=== PATIENT | female | born 1990 | race Caucasian/White ===

== ENCOUNTER → 2020-04-21 | Outpatient (CLI) | payer OTHER ==
[2016-10-16 10:45] VITALS: BP 101/63
[~2020-04-21] MED LIST: CYCL-331 PO; HYDR-3165 PO
--- NOTE | 2020-04-21 16:16 | RAD ---
US PELVIS W/TV History: Dysmenorrhea Comparison: None. Findings: Multiple transabdominal sonographic images of pelvis are submitted. Pelvic structures are poorly seen. Transvaginal ultrasound: Multiple transvaginal sonographic images of pelvis are submitted. Retroverted uterus measures about 7.8 x 6.1 x 4.6 cm. Endometrium is thin at 0.3 cm. Right ovary measured 3.1 x 1.9 x 1.5 cm. Left ovary measured 3.4 x 2.1 x 1.8 cm. There is normal low resistance vascularity of the ovaries bilaterally. There is anechoic lesion of the left ovary up to 2.5 x 1.9 x 1.4 cm. There is minimal free fluid in the pelvis. Impression: 1. There is a simple cyst of the left ovary, minimal free fluid. Electronically signed by: Joon Green MD (04/21/2020 4:13 PM) [id number]
== END | disposition home or self-care (01) ==
LOC: US 10:40
PROVIDERS: ATTEND Obstetrics & Gynecology
DX: N83.292 Other ovarian cyst, left side (principal); N93.9 Abnormal uterine and vaginal bleeding, unspecified; N92.0 Excessive and frequent menstruation with regular cycle; N94.6 Dysmenorrhea, unspecified
CPT/HCPCS: 76830; 76856

== ENCOUNTER → 2020-05-13 | Outpatient (CLI) | payer OTHER ==
[2016-10-16 10:45] VITALS: BP 101/63
--- NOTE | 2020-05-13 15:20 | RAD ---
Pelvic ultrasound complete: Reason for examination: Left lower quadrant pain. History of left ovarian cyst. Comparison is made to previous study dated 04/21/2020. Uterus measures 8.2 x 6.4 x 5.0 cm in greatest dimension. Endometrium is not thickened at 7.4 mm. Left ovary measures 3.7 x 2.3 x 3.1 cm in greatest dimension and shows good vascular flow. There is a small follicle centrally. The largest cyst seen previously has resolved. The right ovary measures 1.8 x 2.5 x 3.0 cm in greatest dimension and shows good vascular flow. There does appear to be a small amount of fluid in pelvic cul-de-sac. IMPRESSION: Resolution of the large cyst seen previously in the left ovary with only a small follicle nodule seen centrally. Small amount free fluid in the pelvis. Electronically signed by: Mary Jo Parekh MD (05/13/2020 3:18 PM) MARI
== END | disposition home or self-care (01) ==
LOC: US 10:09
PROVIDERS: ATTEND Obstetrics & Gynecology
DX: N83.292 Other ovarian cyst, left side (principal)
CPT/HCPCS: 76856

== ENCOUNTER 2021-03-07 16:18 | Emergency (ER) | payer OTHER ==
[~2021-03-07] VITALS: Ht 157.5 cm; Wt 41.4 kg
[2021-03-07] MEDS ORDERED: ONDANSETRON PF 4 MG/2 ML VIAL. IVP ONE (17:00)
[2021-03-07] MEDS ORDERED: ONDANSETRON ODT 4 MG TAB.RAPDIS PO ONE (17:00)
--- NOTE | 2021-03-07 17:13 | PHYS DOC ---
Past History Past Medical History: No Pertinent History Past Surgical History: Appendectomy, Tubal ligation, Other Additional Past Surgical Histo: vaginal x4 Smoking: Cigarettes, Less than 1pk/day Alcohol Use: Rarely Drug Use: None General Adult EDM: Chief Complaint: NAUSEA/VOMITING/DIARRHEA HPI: HPI: Patient is a 30-year-old female who presents with nausea/vomiting/diarrhea since this morning. Patient states "my fianc also has the same symptoms, we thought maybe we had food poisoning". "Everything keeps coming back up". Patient denies fevers. Denies abdominal pain. Denies health history. Review of Systems: Review of Systems: Constitutional: Denies fever or chills Eyes: Denies change in visual acuity HENT: Denies nasal congestion or sore throat Respiratory: Denies cough or shortness of breath Cardiovascular: Denies chest pain or edema GI: Denies abdominal pain. Reports nausea vomiting, diarrhea : Denies dysuria Musculoskeletal: Denies back pain or joint pain Integument: Denies rash Neurologic: Denies headache, focal weakness or sensory changes Endocrine: Denies polyuria or polydipsia Lymphatic: Denies swollen glands Psychiatric: Denies depression or anxiety Current Medications: Current Meds: Current Medications Medications (Trade) Dose Ordered Sig/Ana Start Time Stop Time Status Last Admin Dose Admin Ondansetron HCl (Zofran Odt) 4 mg 1X ONCE 03/07/21 17:00 03/07/21 17:01 DC 03/07/21 17:07 4 MG Ondansetron HCl (Zofran) 4 mg 1X ONCE 03/07/21 17:00 03/07/21 16:57 DC Allergies: Allergies: Allergies Coded Allergies Type Severity Reaction Last Updated Verified latex Allergy Unknown 03/07/21 Yes Physical Exam: PE: Constitutional: Well developed, well nourished, no acute distress, non-toxic appearance. [] HENT: Normocephalic, atraumatic, bilateral external ears normal, oropharynx moist, no oral exudates, nose normal. [] Eyes: PERRLA, EOMI, conjunctiva normal, no discharge. [] Neck: Normal range of motion, no tenderness, supple, no stridor. [] Cardiovascular: Sinus tachycardia Lungs & Thorax: Bilateral breath sounds clear to auscultation [] Abdomen: Bowel sounds normal, soft, no tenderness, no masses, no pulsatile masses. [] Skin: Warm, dry, no erythema, no rash. [] Back: No tenderness, no CVA tenderness. [] Extremities: No tenderness, no cyanosis, no clubbing, ROM intact, no edema. [] Neurologic: Alert and oriented X 3, normal motor function, normal sensory function, no focal deficits noted. [] Psychologic: Affect normal, judgement normal, mood normal. [] Current Patient Data: Vital Signs: Vital Signs Date Time Temp Pulse Resp B/P (MAP) Pulse Ox O2 Delivery O2 Flow Rate FiO2 03/07/21 16:44 98.5 110 18 148/99 (115) 99 Room Air EKG: EKG: [] Radiology/Procedures: Radiology/Procedures: [] Heart Score: C/O Chest Pain: No Risk Factors: Risk Factors: DM, Current or recent (<one month) smoker, HTN, HLP, family history of CAD, obesity. Risk Scores: Score 0 - 3: 2.5% MACE over next 6 weeks - Discharge Home Score 4 - 6: 20.3% MACE over next 6 weeks - Admit for Clinical Observation Score 7 - 10: 72.7% MACE over next 6 weeks - Early Invasive Strategies Course & Med Decision Making: Course & Med Decision Making Pertinent Labs and Imaging studies reviewed. (See chart for details) [] 30-year-old female presents with nausea/vomiting/diarrhea since this morning. Patient states that her fianc also has the same symptoms as her. Patient's heart rate is 102-114, normal saline bolus given. Patient reports that she is unable to keep any fluids down since this morning. Patient given Zofran for nausea. Patient denies abdominal pain. No indication at this time for a CT of abdomen. Patient reports symptoms have improved. Heart rate in the 90s. Patient sent home with prescription for Zofran and requesting a work note. Patient is appreciative and okay with discharge plan Dona Disclaimer: Dona Disclaimer: This electronic medical record was generated, in whole or in part, using a voice recognition dictation system. Departure Departure: Impression: Primary Impression: Nausea & vomiting Qualified Codes: R11.2 - Nausea with vomiting, unspecified Disposition: HOME / SELF CARE / HOMELESS Condition: STABLE Referrals: PCP,NO (PCP) Patient Instructions: Nausea and Vomiting, [id number] Additional Instructions: You were seen in the emergency room for nausea and vomiting. Your symptoms improved after medication. Sending you home with Zofran for nausea and vomiting. Please follow-up with your PCP if symptoms do not improve. Please return emergency room if you have worsening symptoms or concerns EMERGENCY DEPARTMENT GENERAL DISCHARGE INSTRUCTIONS Thank you for coming to [facility] (ED) today and trusting us with you care. We trust that you had a positivie experience in our Emergency Department. If you wish to speak to the department management, you may call the director at [phone]. YOUR FOLLOW UP INSTRUCTIONS ARE FOLLOWS: 1. Do you have a private Doctor? If you do not have a private doctor, please ask for a resource list of physicians or clinics that may be able to assist you with follow up care. 2. The Emergency Physician has interpreted your x-rays. The X-Ray specialist will also review them. If there is a change in the findings, you will be notified in 48 hours when at all possible. 3. A lab test or culture has been done, your results will be reviewed and you will be notified if you need a change in treatment. ADDITIONAL INSTRUCTIONS AND INFORMATION: 1. Your care today has been supervised by a physician who is specially trained in emergency care. Many problems require more than one evaluation for a complete diagnosis and treatment. We recommend that you schedule your follow up appointment as recommended to ensure complete treatment of you illness or injury. If you are unable to obtain follow up care and continue to have a problem, or if your condition worsens, we recommend that you return to the ED. 2. We are not able to safely determine your condition over the phone nor are we able to give sound medical advice over the phone. For these safety reasons, if you call for medical advice we will ask you to come to the ED for further evaluation. 3. If you have any questions regarding these discharge instructions please call the ED at [phone]. SAFETY INFORMATION: In the interest of safety, wellness, and injury prevention; we encourage you to wear your sealbelt, if you smoke; quite smoking, and we encourage family to use a protective helmet for bicycling and other sporting events that present an increased risk for head injury. IF YOUR SYMPTOMS WORSEN OR NEW SYMPTOMS DEVELOP, OR YOU HAVE CONCERNS ABOUT YOUR CONDITION; OR IF YOUR CONDITION WORSENS WHILE YOU ARE WAITING FOR YOUR FOLLOW UP APPOINTMENT; EITHER CONTACT YOUR PRIMARY CARE DOCTOR, THE PHYSICIAN WHOSE NAME AND NUMBER YOU WERE GIVEN, OR RETURN TO THE ED IMMEDIATELY. Scripts Ondansetron Hcl (ZOFRAN) 4 Mg Tablet 4 MG PO TID PRN PRN for NAUSEA, #9 TAB Prov: DEANNA SALDANA APRN 03/07/21 DEANNA SALDANA APRN Mar 07, 2021 17:13
[2021-03-07] MEDS ORDERED: IV NORMAL SALINE 1,000ML 1,000 ML IV ONE (17:15)
[2021-03-07 18:15] VITALS: BP 111/59
[2021-03-07] MEDS ORDERED: ONDA4TAB7 PO (18:38)
== END 2021-03-07 18:50 | disposition home or self-care (01) ==
LOC: ER 16:18
DX: R11.2 Nausea with vomiting, unspecified (principal); R19.7 Diarrhea, unspecified; F17.210 Nicotine dependence, cigarettes, uncomplicated; Z90.89 Acquired absence of other organs; Z98.51 Tubal ligation status; Z91.040 Latex allergy status
CPT/HCPCS: 99283; J7030; Q0162

== ENCOUNTER 2021-04-08 02:54 | Emergency (ER) | payer OTHER ==
[~2021-04-08] VITALS: Ht 157.5 cm; Wt 41.6 kg
[~2021-04-08 02:54] MED LIST changes: +ONDA4TAB7 PO
--- NOTE | 2021-04-08 03:24 | PHYS DOC ---
Past History Past Medical History: No Pertinent History Past Surgical History: Appendectomy, Hysterectomy, Tubal ligation Additional Past Surgical Histo: vaginal x4 Smoking: Cigarettes, Less than 1pk/day Alcohol Use: Rarely Drug Use: None General Adult EDM: Chief Complaint: ABDOMINAL PAIN HPI: HPI: 30-year-old female presents with lower abdominal pain. The patient had a hysterectomy a couple weeks ago. She is supposed to take it easy for at least 6 weeks. She has been following instructions. Tonight, the patient had intense lower abdominal cramping and she tried to go to bed. She was able to fall asleep but woke up an hour later and the pain has continued throughout the night. She decided she could not take anymore so she came to the emergency room. She denies fever or chills. She denies falls or trauma. She did not call her surgeon. Review of Systems: Review of Systems: Constitutional: Denies fever or chills Eyes: Denies change in visual acuity HENT: Denies nasal congestion or sore throat Respiratory: Denies cough or shortness of breath Cardiovascular: Denies chest pain or edema GI: Lower abdominal pain. Denies nausea, vomiting, bloody stools or diarrhea : Denies dysuria Musculoskeletal: Denies back pain or joint pain Integument: Denies rash Neurologic: Denies headache, focal weakness or sensory changes Endocrine: Denies polyuria or polydipsia Lymphatic: Denies swollen glands Psychiatric: Denies depression or anxiety Current Medications: Current Meds: Current Medications Medications (Trade) Dose Ordered Sig/Ana Start Time Stop Time Status Last Admin Dose Admin Iohexol (Omnipaque 300 Mg/ml) 75 ml 1X ONCE 04/08/21 03:30 04/08/21 03:31 UNV Morphine Sulfate (Morphine 2mg Syringe) 2 mg 1X ONCE 04/08/21 03:30 04/08/21 03:31 UNV Sodium Chloride 1,000 ml @ 1,000 mls/hr 1X ONCE 04/08/21 03:30 04/08/21 04:29 Allergies: Allergies: Allergies Coded Allergies Type Severity Reaction Last Updated Verified latex Allergy Unknown 03/07/21 Yes Physical Exam: PE: Constitutional: Well developed, well nourished, no acute distress, non-toxic appearance. [] HENT: Normocephalic, atraumatic, bilateral external ears normal, oropharynx moist, no oral exudates, nose normal. [] Eyes: PERRLA, EOMI, conjunctiva normal, no discharge. [] Neck: Normal range of motion, no tenderness, supple, no stridor. [] Cardiovascular: Heart rate regular rhythm, no murmur [] Lungs & Thorax: Bilateral breath sounds clear to auscultation [] Abdomen: Bowel sounds normal, soft, no tenderness, no masses, no pulsatile masses. [] Skin: Warm, dry, no erythema, no rash. [] Back: No tenderness, no CVA tenderness. [] Extremities: No tenderness, no cyanosis, no clubbing, ROM intact, no edema. [] Neurologic: Alert and oriented X 3, normal motor function, normal sensory function, no focal deficits noted. [] Psychologic: Affect dramatic, judgement normal, mood normal. [] Current Patient Data: Vital Signs: Vital Signs Date Time Temp Pulse Resp B/P (MAP) Pulse Ox O2 Delivery O2 Flow Rate FiO2 04/08/21 03:08 98.0 113 18 115/61 99 Room Air EKG: EKG: [] Radiology/Procedures: Radiology/Procedures: [] Heart Score: C/O Chest Pain: N/A Risk Factors: Risk Factors: DM, Current or recent (<one month) smoker, HTN, HLP, family history of CAD, obesity. Risk Scores: Score 0 - 3: 2.5% MACE over next 6 weeks - Discharge Home Score 4 - 6: 20.3% MACE over next 6 weeks - Admit for Clinical Observation Score 7 - 10: 72.7% MACE over next 6 weeks - Early Invasive Strategies Course & Med Decision Making: Course & Med Decision Making Pertinent Labs and Imaging studies reviewed. (See chart for details) The patient's labs are unremarkable. Her urine drug screen was positive for opiates and marijuana. I did give her 2 mg of morphine prior to her giving a urine sample. It is possible that the abdominal cramping as a result of side effects of the marijuana. CT scan is pending. Patient's urinalysis shows blood, leukocyte esterase, and white cells. We will go ahead and treat her with Rocephin. The patient CT scan suggest infectious ileitis. I will treat her with Augmentin for 7 days. She is stable for discharge at this time. [] Dona Disclaimer: Dona Disclaimer: This electronic medical record was generated, in whole or in part, using a voice recognition dictation system. Departure Departure: Impression: Primary Impression: Ileitis Additional Impression: UTI (urinary tract infection) Qualified Codes: N30.01 - Acute cystitis with hematuria Disposition: HOME / SELF CARE / HOMELESS Condition: STABLE Referrals: PCP,NO (PCP) Patient Instructions: Urinary Tract Infection, [id number] Scripts Amoxicillin/Potassium Clav (AUGMENTIN 875-125 TABLET) 1 Each Tablet 1 TAB PO BID for infection for 7 Days, #14 TAB 0 Refills Prov: CHAS JEFFREY DO 04/08/21 CHAS JEFFREY DO Apr 08, 2021 03:24
[2021-04-08] MEDS ORDERED: IV NORMAL SALINE 1,000ML 1,000 ML IV ONE (03:30)
[2021-04-08] MEDS ORDERED: CONTRAST GIVEN. MC PRN (03:30)
[2021-04-08 03:39] LABS: BASO # 0.1 x10^3/uL (0.0-0.2); BASO % 1 % (0-3); EOS # 0.2 x10^3/uL (0.0-0.7); EOS % 2 % (0-3); HEMATOCRIT 39.1 % (36.0-47.0); HEMOGLOBIN 13.1 g/dL (12.0-15.5); LYMPH # 2.3 x10^3/uL (1.0-4.8); LYMPH % 16 % (24-48); MEAN CORPUSCULAR HEMOGLOBIN 30 pg (25-35); MEAN CORPUSCULAR HGB CONC 34 g/dL (31-37); MEAN CORPUSCULAR VOLUME 89 fL (79-100); MONO # 0.7 x10^3/uL (0.0-1.1); MONO % 5 % (0-9); NEUT # 11.2 x10^3uL (1.8-7.7); NEUT % 77 % (31-73); PLATELET COUNT 250 x10^3/uL (140-400); RED BLOOD COUNT 4.38 x10^6/uL (3.50-5.40); RED CELL DISTRIBUTION WIDTH 13.2 % (11.5-14.5); WHITE BLOOD COUNT 14.5 x10^3/uL (4.0-11.0)
[2021-04-08 03:49] LABS: CALCIUM 8.7 mg/dL (8.5-10.1); CREATININE 0.7 mg/dL (0.6-1.0); GFR 99.6; POTASSIUM 3.6 mmol/L (3.5-5.1)
[2021-04-08 03:54] LABS: ALBUMIN 3.6 g/dL (3.4-5.0); ALBUMIN/GLOBULIN RATIO 1.1 (1.0-1.7); TOTAL BILIRUBIN 0.2 mg/dL (0.2-1.0)
[2021-04-08] MEDS ORDERED: MORPHINE SULFATE 2 MG/ML DISP.SYRIN. IV ONE (04:00)
[2021-04-08] MEDS ORDERED: IOHEXOL 300 MG/ML 75 ML VIAL. IV ONE (04:00)
[2021-04-08 04:09] LABS: BACTERIA,URINE FEW /HPF (0-FEW); BARBITURATES NEG (NEG); BENZODIAZEPINES NEG (NEG); BILIRUBIN,URINE NEG (NEG); CANNABINOIDS POS (NEG); CLARITY,URINE HAZY; COCAINE NEG (NEG); COLOR,URINE YELLOW; GLUCOSE,URINE NEG (NEG); METHADONE NEG (NEG); NITRITE,URINE NEG (NEG); OPIATES POS (NEG); PHENCYCLIDINE NEG (NEG); RBC,URINE OCC /HPF (0-2); SQUAMOUS EPITHELIAL CELL,UR MOD /LPF
[2021-04-08 04:16] LABS: AMPHETAMINE/METHAMPHETAMINE NEG (NEG)
[2021-04-08] MEDS ORDERED: cefTRIAXone SODIUM 1 GM VIAL ONE (04:23)
[2021-04-08] MEDS ORDERED: IV NORMAL SALINE 50ML 50 ML ONE (04:23)
--- NOTE | 2021-04-08 04:44 | RAD ---
EXAMINATION: CT abdomen and pelvis with IV contrast. INDICATION:30 years, Female, abdominal pain, recent hysterectomy. TECHNIQUE: Axial CT images of the abdomen and pelvis were obtained. Coronal and sagittal reformatted performed. COMPARISON: None. Exposure: One or more of the following individualized dose reduction techniques were utilized for thi s examination: 1. Automated exposure control 2. Adjustment of the mA and/or kV according to patient size 3. Use of iterative reconstruction technique. FINDINGS: LOWER CHEST: Unremarkable ABDOMEN/PELVIS: Normal size and morphology of the liver with homogeneous enhancement. Focal fat infiltration adjacent to the falciform ligament. No suspicious focal hepatic lesion. Contracted gallbladder which limits e valuation. No biliary ductal dilation. Unremarkable spleen and pancreas. No adrenal nodule. No hydron ephrosis or nephrolithiasis in either kidney. Subcentimeter hypodensity in the lower pole left kidney , too small to characterize, but statistically representing cyst. Normal caliber abdominal aorta. Mesenteric arteries and portal vein are patent. No pneumoperitoneum o r ascites. No lymphadenopathy in the abdomen or pelvis by size criteria. Diffuse urinary bladder wall thickening, may relate to distention. Hysterectomy changes. Mild wall thickening involving approximately 10 cm long of the ileal loop in the left hemipelvis with adjacent fat stranding. Trace amount of pelvic free fluid, likely reactive. No bowel dilatation. Radha endix is not seen with certainty. MUSCULOSKELETAL: No acute osseous process. IMPRESSION: 1. Wall thickening involving approximately 10 cm long of the ileal loop in the left hemipelvis with t race amount of perienteric fat stranding, findings suggesting of acute infectious/inflammatory ileiti s. Clinical correlation is advised. 2. Diffuse urinary bladder wall thickening, may relate to underdistention. Consider correlation with urinalysis. Electronically signed by: aYsh Ramesh MD (04/08/2021 4:42 AM) [facility]
[2021-04-08] MEDS ORDERED: AMOX1TAB61 PO (04:50)
[2021-04-08 05:00] VITALS: BP 103/55
== END 2021-04-08 05:11 | disposition home or self-care (01) ==
LOC: ER 02:54
DX: K52.9 Noninfective gastroenteritis and colitis, unspecified (principal); N39.0 Urinary tract infection, site not specified; F17.210 Nicotine dependence, cigarettes, uncomplicated; Z91.040 Latex allergy status; Z90.710 Acquired absence of both cervix and uterus; Z98.51 Tubal ligation status
CPT/HCPCS: 36415; 74177; 80053; 80307; 81001; 83605; 85025; 87086; 96361; 96365; 96375; 99285; J0696; J2270; J7030; Q9967

== ENCOUNTER 2021-08-16 11:17 | Emergency (ER) | payer OTHER ==
[~2021-08-16] VITALS: Ht 157.5 cm; Wt 41.6 kg
[~2021-08-16 11:17] MED LIST changes: +AMOX1TAB61 PO; -CYCL-331 PO; +CYCL10TA19 PO
[2021-08-16 11:41] VITALS: BP 113/67
[2021-08-16] MEDS ORDERED: IBUPROFEN 600 MG TABLET. PO ONE (12:00)
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
[2021-08-16] MEDS ORDERED: CYCL10TA19 PO (13:01)
[2021-08-16] MEDS ORDERED: IBUP600T16 PO (13:01)
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
== END 2021-08-16 13:09 | disposition home or self-care (01) ==
LOC: ER 11:17
DX: M54.2 Cervicalgia (principal); M54.59 Other low back pain; R20.0 Anesthesia of skin; F17.210 Nicotine dependence, cigarettes, uncomplicated; Z91.040 Latex allergy status; V49.9XXA Car occupant (driver) (passenger) injured in unspecified traffic accident, initial encounter; Y93.89 Activity, other specified; Y92.89 Other specified places as the place of occurrence of the external cause; Y99.8 Other external cause status
CPT/HCPCS: 72050; 72100; 99283; 99284

== ENCOUNTER 2021-10-26 18:18 | Emergency (ER) | payer OTHER ==
[~2021-10-26] VITALS: Ht 157.5 cm; Wt 41.6 kg
[~2021-10-26 18:18] MED LIST changes: +IBUP600T16 PO
--- NOTE | 2021-10-26 18:24 | PHYS DOC ---
Past History Past Medical History: No Pertinent History Past Surgical History: Appendectomy, Hysterectomy, Tubal ligation Additional Past Surgical Histo: vaginal x4 Smoking: Cigarettes, Less than 1pk/day Alcohol Use: Rarely Drug Use: None Adult General HPI HPI Patient is a 31-year-old female with a past medical history of [id number] smoking history who presents with a chief complaint of nasal congestion, cough, and body aches over the last day. Denies any recent travel, traumas, fevers, chest pain, shortness of breath, abdominal pain, dysuria, hematuria, diarrhea or blood in the stool. States she did have an episode of nonbloody nonbilious emesis before coming in. States she has been fully vaccinated for COVID. States she has been eating and drinking normally up until a few hours ago. States she is been making urine and stool normally for her. Did not take any medications today. Wants a COVID swab. Review of Systems Review of Systems Review of systems otherwise unremarkable except noted in HPI Allergies Allergies Allergies Coded Allergies Type Severity Reaction Last Updated Verified latex Allergy Unknown 03/07/21 Yes Physical Exam Physical Exam Constitutional: Well developed, well nourished, no acute distress, non-toxic appearance. [] HENT: Normocephalic, atraumatic, oropharynx moist, no oral exudates, nasal congestion Eyes: conjunctiva normal, no discharge. [] Neck: Normal range of motion, no tenderness, supple, no stridor. [] Cardiovascular: Sinus tachycardia [] Lungs & Thorax: No respiratory distress or tachypnea, with upper respiratory congestion bilaterally, no wheeze Abdomen: soft, no tenderness, no masses, no pulsatile masses. [] Skin: Warm, dry, no erythema, no rash. [] Extremities: No tenderness, no cyanosis, no clubbing, ROM intact, no edema. [] Neurologic: Alert and oriented X 3, normal motor function, normal sensory function, able to sit, stand and walk without issue no focal deficits noted. [] Psychologic: Affect normal, judgement normal, mood normal. [] EKG EKG [] Radiology/Procedures Radiology/Procedures [] Heart Score C/O Chest Pain: No Risk Factors: Risk Factors: DM, Current or recent (<one month) smoker, HTN, HLP, family history of CAD, obesity. Risk Scores: Risk Factors: DM, Current or recent (<one month) smoker, HTN, HLP, family history of CAD, obesity. Course & Med Decision Making Course & Med Decision Making Patient is a 31-year-old female who presents with COVID/flu/cold symptoms for day Vital signs notable for sinus tachycardia. Physical exam noted above. Given medicines for symptom control. Chest x-ray with no obvious acute consolidations or atypical pneumonia, signs of COPD Discussed symptom control at home. Advised on diet. Covid swab pending. Advised on Covid quarantine and education. Advised to follow-up in the morning with primary care physician. Gave return precautions to the ED. Patient grateful, verbalized understanding and agreed with plan of discharge. [] Dragon Disclaimer Dragon Disclaimer This electronic medical record was generated, in whole or in part, using a voice recognition dictation system. Departure Departure: Disposition: HOME / SELF CARE / HOMELESS Condition: GOOD Referrals: [facility] (PCP) JULIA KELLEY Patient Instructions: Viral Syndrome Additional Instructions: Thank you for coming into the emergency department tonight and allowing us to take care of you. Please read the attached information carefully to go over things we discussed. You can continue Tylenol, ibuprofen and Benadryl as well as cough drops as needed, and as tolerated as long as you are not allergic. Please be sure to eat at least 3 nutritious meals a day, stay well-hydrated and take a multivitamin daily. Please follow-up tomorrow with a primary care physician update on your ED visit and set up a follow-up. Please come back with new or concerning symptoms as discussed. You have been tested for or diagnosed with COVID-19. It is an infection caused by a new type of coronavirus. COVID-19 will cause cold-like or mild flu symptoms in most. It can cause more severe symptoms like problems breathing in some. There is no treatment for COVID-19. The body will clear the infection over time. Self-care will help to ease discomfort. Steps to Take: Self-Care Rest as needed. Healthy habits may help you feel better. Steps include: Choose healthy foods including fruits and vegetables. Drink water throughout the day. Get plenty of sleep each night. If you smoke, try to quit. It may ease breathing. Avoid alcohol. Keep Others Healthy The virus can spread to others. Droplets are released every time you sneeze or cough. The droplets can get into the mouth, nose, or eyes of people near you and lead to infection. To lower the chances of spreading COVID-19 to others: Stay at home until your doctor has said it is safe to leave. If you tested positive this will mean staying isolated until both of the following are true: At least 7 days have passed since the start of illness. You are free of fever for at least 72 hours without the use of medicine. However CDC guidelines change frequently and it would be a good idea to visit the CDC website as soon as you get home for current guidelines During this time: - Avoid public areas, events, or transportation. Do not return to work or school until your doctor has said it is safe to do so. - Call ahead if you need to go to a medical center. Let them know you may have COVID-19. It will help them guide you where to go. They may also ask you to wear a facemask when you come to the office. - If you call for emergency medical services, let them know you may have COVID- 19. While at home: - Try to avoid close contact with others. Stay about 6 feet away. - If possible, spend most of your time in a separate room from others. - Use a face mask if you will be in close contact with others such as sharing a room or vehicle. - Have someone wipe down common surfaces in the home. Use household supervisor kennel every day on areas like doorknobs, counters, or sinks. - Cough or sneeze into a tissue. Throw the tissue away right after use. If a tissue is not available, cough or sneeze into your elbow. - Wash your hands often. Wash them after sneezing or coughing. Use soap and water and wash for at least 20 seconds. Alcohol based hand street cleaner can be used if soap and water is not available. - Do not prepare food for others. Avoid sharing personal items like forks, spoons, or toothbrushes. - Avoid close contact with pets while you are sick. There is no evidence of the virus passing to pets. This is a safety step until more is known about this virus. Isolation can be frustrating. Social interaction can help. Keep in touch with friends and family through phone and tech options. You can still interact with others in your home, just keep a safe distance of about 6 feet. Follow-up: Your doctors office will check in with you to see if there are any changes in your health. You may be asked to keep track of symptoms to share with them. They will also let you know when you are clear to be in public again. Problems to Look Out For: Contact your doctor if your recovery is not going as you expect. Get emergency care if you have problems such as: - Trouble breathing - Nonstop chest pain or pressure - Changes in awareness, confusion, or problems waking - Lips or face have bluish color - Worsening of symptoms If you think you have an emergency, call for emergency medical services right away. As taken from [facility] Oct 26, 2021 18:24
[2021-10-26] MEDS ORDERED: ONDANSETRON ODT 4 MG TAB.RAPDIS PO ONE (18:30)
[2021-10-26] MEDS ORDERED: diphenhydrAMINE HCL 25 MG CAPSULE PO ONE (18:30)
[2021-10-26] MEDS ORDERED: ACETAMINOPHEN 500 MG TABLET PO ONE (18:30)
[2021-10-26] MEDS ORDERED: IBUPROFEN 600 MG TABLET. PO ONE (18:30)
--- NOTE | 2021-10-26 19:16 | RAD ---
INDICATION: Reason: cough / Spl. Instructions: / History: COMPARISON: November 2010 FINDINGS: Single view of chest obtained. Scoliotic curvature of the spine. Cardiomediastinal silhouette is unremarkable. No focal airspace consolidation. IMPRESSION: * No focal airspace consolidation or edema. Electronically signed by: Mychal Yepez MD (10/26/2021 7:13 PM) [id number]
[2021-10-26 19:23] VITALS: BP 102/58
== END 2021-10-26 19:23 | disposition home or self-care (01) ==
LOC: ER 18:22
DX: U07.1 COVID-19 (principal); F17.210 Nicotine dependence, cigarettes, uncomplicated; Z91.040 Latex allergy status
CPT/HCPCS: 71045; 99284; C9803; Q0162; Q0163; U0003